=== PATIENT | female | born 1965 | race Caucasian/White ===

== ENCOUNTER 2019-03-01 13:33 | Outpatient (CLI) | payer BC ==
--- NOTE | 2019-03-01 15:37 | MMO ---
Bilateral MAMMO Bilat Screen [facility]. CLINICAL HISTORY: Patient is 54 years old and is seen for screening. The patient has the following family history of breast cancer: sister, at age 45. The patient has no personal history of cancer. VIEWS: The views performed were: bilateral craniocaudal with tomosynthesis; bilateral mediolateral oblique with tomosynthesis; and bilateral exaggerated craniocaudal. FILMS COMPARED: The present examination has been compared to prior imaging studies performed at [facility] on 09/22/2016 and 12/10/2017. MAMMOGRAM FINDINGS: There are scattered fibroglandular densities. There are benign appearing calcifications seen in both breasts. There are no suspicious masses, suspicious calcifications, or new areas of architectural distortion. IMPRESSION: THERE IS NO MAMMOGRAPHIC EVIDENCE OF MALIGNANCY. A ROUTINE FOLLOW-UP MAMMOGRAM IN 1 YEAR IS RECOMMENDED. THE RESULTS OF THIS EXAM WERE SENT TO THE PATIENT. ACR BI-RADS Category 2 - Benign finding MAMMOGRAPHY NOTE: 1. A negative mammogram report should not delay a biopsy if a dominant of clinically suspicious mass is present. 2. Approximately 10% to 15% of breast cancers are not detected by mammography. 3. Adenosis and dense breasts may obscure an underlying neoplasm.
== END 2019-03-01 13:34 | disposition home or self-care (01) ==
LOC: BICMAMMO 13:33
PROVIDERS: ATTEND Family Medicine
DX: Z12.31 Encounter for screening mammogram for malignant neoplasm of breast (principal); Z80.3 Family history of malignant neoplasm of breast
CPT/HCPCS: 77063; 77067

== ENCOUNTER 2019-10-06 11:03 | Outpatient (CLI) | payer BC ==
--- NOTE | 2019-10-06 12:23 | RAD ---
2 VIEWS CHEST: Date: 10/06/19 COMPARISON: None. HISTORY: Cough for a month. FINDINGS: Two views of the chest show normal sized cardiomediastinal silhouette. There is no evidence of consol idation, mass, or pleural effusion. The bones are unremarkable. IMPRESSION: No evidence of acute cardiopulmonary disease. POS: CET
== END 2019-10-06 11:04 | disposition home or self-care (01) ==
LOC: SCSRAD 11:03
PROVIDERS: ATTEND Family Medicine
DX: R05 Cough (principal)
CPT/HCPCS: 36415; 71046; 80053; 80061; 81003; 81015; 83036; 84439; 84443; 85025

== ENCOUNTER 2019-10-16 13:43 | Outpatient (CLI) | payer BC ==
--- NOTE | 2019-10-16 16:37 | ULT ---
THYROID ULTRASOUND: Date: 10/16/19 HISTORY: Elevated thyroid function tests. FINDINGS: Real-time imaging of the right and left lobes of the thyroid were performed. Right lobe measures 1.3 x 1.5 x 4.7 cm. Left lobe measures 1.6 x 1.8 x 4.5 cm. Gland is heterogeneous. I do not definitely de monstrate a discrete nodule. IMPRESSION: Mildly heterogeneous gland. No definite focal discrete nodule identified. POS: DODIE
== END 2019-10-16 13:44 | disposition home or self-care (01) ==
LOC: BICULT 13:43
PROVIDERS: ATTEND Family Medicine
DX: E04.9 Nontoxic goiter, unspecified (principal)
CPT/HCPCS: 76536